=== PATIENT | male | born 1980 | race Caucasian/White ===

== ENCOUNTER 2017-03-02 16:25 | Emergency (ER) | payer OTHER ==
[~2017-03-02] VITALS: Ht 193 cm; Wt 86.2 kg
[~2017-03-02 16:25] MED LIST: FLEXERIL10 MG PO; MEDROL4 MG/DOSE- PO; ORUDIS75 M1 PO; VICODIN 5/500 T1 TAB PO
== END 2017-03-02 18:31 | disposition home or self-care (01) ==
LOC: CED 16:25 → CFTX 16:25
DX: M77.9 Enthesopathy, unspecified (principal); F17.200 Nicotine dependence, unspecified, uncomplicated
CPT/HCPCS: 29260; 99283